=== PATIENT | male | born 1990 | race African-American/Black ===

== ENCOUNTER 2024-07-05 08:35 | Emergency (ER) | payer OTHER, SELFPAY ==
[2024-07-05 08:45] VITALS: BP 157/82; PULSE 90; RESP 16; TEMP 36.5; O2SAT 100; BMI 35.4
--- NOTE | 2024-07-05 09:10 | PC.NURSE ---
swabs obtained/sent to lab by tech.
[2024-07-05] MEDS: dexAMETHasone sod phosphate 10 MG/ML VIAL IVPUSH (09:23)
[2024-07-05] MEDS: Lidocaine HCl Viscous 2 % 15 ML SOLUTION MUCOUS MEM (09:23)
--- NOTE | 2024-07-05 09:26 | PC.NURSE ---
pt medicated per provider order.
--- NOTE | 2024-07-05 09:30 | ED.GENADULT ---
HPI - General Adult General Chief complaint: Skin/Abscess/Foreign Body Stated complaint: quest fb stuck in throat Time Seen by Provider: 07/05/24 08:57 Source: patient Mode of arrival: ambulatory Limitations: no limitations History of Present Illness ED Provider: SAMMI Collier HPI narrative: 33-year-old male presents with sore throat x3 days, reports this morning at approximately 0400- 05:00 he started experiencing foreign body sensation in his throat status post eating Tostitos. He reports he is having a hard time swallowing and it curry when he swallows. Nothing like this has ever happened to him before. He feels like he needs to vomit however has not yet vomited. Denies feeling anything sharp in his throat he just feels like something stuck there. Denies fevers, chills, headache, vision changes, dizziness, weakness, chest pain, shortness of breath, cough, vomiting, diarrhea. No sick contacts. Related Data Previous Rx's ?Medication ?Instructions ?Recorded Magic Mouthwash 5 ml PO TID #240 mL 07/05/24 Diphen/Lido/Antacid 1:1:1 240 mL suspension Allergies Allergy/AdvReac Type Severity Reaction Status Date / Time No Known Allergies Allergy Verified 07/05/24 08:47 Review of Systems Review of Systems: Yes all other systems are reviewed and are negative PMFSH Past Medical History Attestation statement: The following information was validated with the patient. Source: old records reviewed and nursing notes reviewed Social History Social History Alcohol intake: current Alcohol intake frequency: holidays/special occasions only Smoked in Last 30 Days: No Use of substances other than those prescribed or required for medical reasons: No Advance Directives: No Advance Directives Information Provided: Yes Do you have a plan to hurt others: No Plan Physical Exam ED Vital Signs: Vital Signs - 24 hr 07/05/24 08:45 07/05/24 10:22 07/05/24 11:55 Temperature 97.7 F 98.5 F Pulse Rate 90 69 71 Respiratory Rate 16 18 Blood Pressure 157/82 H 145/91 H 148/91 H Pulse Oximetry 100 97 Oxygen Delivery Method Room Air Room Air 07/05/24 12:06 Temperature 98.5 F Pulse Rate 61 Respiratory Rate 18 Blood Pressure 137/83 Pulse Oximetry 95 Oxygen Delivery Method Room Air BMI result Body Mass Index 35.4 vss Appearance: Alert.? Oriented X3.? No acute distress.? Head: Normocephalic, atraumatic, no step-offs or deformities Eyes: Pupils equal, round and reactive to light.? ENT: Pharynx normal.? No erythema, edema. Speaking in full sentences controlling secretions well Neck: Normal inspection.? Neck supple.? CVS: Normal heart rate and rhythm.? Pulses normal.? Respiratory: No respiratory distress.? Breath sounds normal.? Abdomen: Soft and nontender.? Skin: Skin warm and dry.? Normal skin color.? Normal skin turgor.? Extremities: No lower extremity edema.? No calf ttp. 5/5 strength to bilateral upper and lower extremities Neuro: Oriented X 3.? No motor deficit.? No sensory deficit. CN 2-12 intact Course Reevaluation(s) Reevaluation #1: CBC unremarkable. Chemistry no acute findings needing intervention. Flu, COVID, RSV negative. Strep negative. Wasatch negative. Patient continued to state he feels like there is something in his throat even after Decadron and lidocaine viscous. I did reach out to GI doctor whitney who recommended trying glucagon and nitroglycerin dissolved in 10 mL of water. This was ordered. Will re-evaluate patient after this is given Time: 11:35 Reevaluation #2: Patient tolerating p.o. liquids controlling secretions well. Pain improved after medicine. Discuss this case with GI will have him follow-up as an outpatient. Advised him to return with any new or worsening symptoms. Educated patient on diagnosis and treatment plan, answered all question, patient verbalizes understanding. At this time patient will be discharged home, advised to return with new or worsening symptoms. Educated on worrisome signs and symptoms and when to return. At this time I feel comfortable discharge home. Time: 13:02 Medications Administered Discontinued Medications Generic Name Dose Route Start Last Admin Trade Name Dane PRN Reason Stop Dose Admin Dexamethasone Sodium Phosphate 10 mg 07/05/24 09:17 07/05/24 09:23 Dexamethasone Sod Phosphate 10 Mg/Ml Vial IVPUSH 07/05/24 09:18 10 mg ONCE ONE Administration Glucagon 0.5 mg 07/05/24 11:37 07/05/24 11:55 Glucagon Hcl 1 Mg Vial IVPUSH 07/05/24 11:38 0.5 mg ONCE ONE Administration Lidocaine HCl 15 ml 07/05/24 09:17 07/05/24 09:23 Lidocaine Hcl Viscous 2 % 15 Ml Solution MUCOUS MEM 07/05/24 09:18 15 ml ONCE ONE Administration Nitroglycerin 0.4 mg 07/05/24 11:37 07/05/24 11:55 Nitroglycerin 0.4 Mg Tab.Subl SUBLINGUAL 07/05/24 11:38 0.4 mg ONCE ONE Administration Medical Decision Making Medical Decision Making [facility] Narrative: 33-year-old male presents with sore throat x3 days, foreign body sensation in throat since this morning after eating Tostitos PE benign History and physical exam concerning for pharyngitis versus strep throat versus mononucleosis. Low suspicion for acute threat to airway, lodged foreign body in throat. Will rule out flu versus COVID versus RSV. Plan viral testing, Monospot. Differential Diagnosis Differential Diagnoses: The differential diagnosis associated with the presentation includes ( History and physical exam concerning for pharyngitis versus strep throat versus mononucleosis. Low suspicion for acute threat to airway, lodged foreign body in throat. Will rule out flu versus COVID versus RSV.) Admission/Observation Consideration of admission/observation: Escalation of care including admission/observation considered Lab Data [facility] Lab Attestation statement: I reviewed the patient's lab results. 07/05/24 09:46 07/05/24 09:46 Labs: Lab Results 07/05/24 07/05/24 Range/Units 09: 09:46 WBC 7.7 (4.8-10.8) X10*3/uL RBC 4.48 L (4.60-5.80) X10*6/uL Hgb 12.9 L (14.0-18.0) g/dl Hct 38.2 L (42.0-52.0) % MCV 85.3 (80.0-98.0) fL MCH 28.8 (27.0-33.0) pg MCHC 33.8 (31.0-36.0) g/dl RDW 12.8 (11.0-16.0) % Plt Count 276 (160-400) X10*3/uL MPV 9.3 L (9.4-12.4) fL Immature Gran % (Auto) 0.1 (0.0-0.4) % Neut % (Auto) 82.4 H (45-73) % Lymph % (Auto) 12.9 L (20-40) % Wasatch % (Auto) 3.9 (2-11) % Eos % (Auto) 0.3 (0-4) % Baso % (Auto) 0.4 (0-2) % Lymph # (Auto) 1.0 L (1.2-4.9) X10*3/uL [place] # (Auto) 0.3 (0.1-1.2) X10*3/uL Eos # (Auto) 0.0 (0.0-0.4) X10*3/uL Baso # (Auto) 0.0 (0.0-0.2) X10*3/uL Abs Immat Gran (auto) 0.01 (0.00-0.03) X10*3/uL Absolute Neuts (auto) 6.3 (2.0-8.3) x10*3/uL Absolute Nucleated RBC 0.000 (0.0-0.012) X10*3/uL Nucleated RBC % (auto) 0.0 (0.0-0.2) /100WBC Sodium 135 (135-145) mmol/L Potassium 3.6 (3.3-5.1) mmol/L Chloride 101 (96-108) mmol/L Carbon Dioxide 23 (22-29) mmol/L Anion Gap 15 (12-20) BUN 8 L (9-16) mg/dL Creatinine 1.04 (0.5-1.4) mg/dL Estim Creat Clear Calc 116.3 Estimated GFR > 60 Random Glucose 140 H (60-115) mg/dL Calcium 9.4 (8.4-10.2) mg/dL Total Bilirubin 0.2 (0.0-1.0) mg/dL AST 25 (5-37) U/L ALT 23 (0-40) U/L Alkaline Phosphatase 130 H (39-117) U/L Total Protein 7.5 (6.5-8.0) g/dL Albumin 4.2 (3.5-5.0) g/dL Monoscreen Negative (Negative) Influenza Type A (PCR) NEGATIVE (Negative) Influenza Type B (PCR) NEGATIVE (Negative) RSV RNA Qual (PCR) NEGATIVE (Negative) SARS-CoV-2 RNA (RT-PCR) NEGATIVE (Negative) S. pyogenes GrpA OLINDA Negative (Negative) Chronic Conditions Patient?s care impacted by: Other (denies ) Critical Care Time Critical Care Time Critical Care Time: Yes Total Critical Care Time: 35 Attestation: I attest to this time spent taking care of the patient, obtaining history, physical, reviewing labs, imaging, treatment of patients condition +/- specialist/hospitalist consult Discharge Plan Discharge Clinical Impression: Sore throat, Foreign body sensation in throat Patient Disposition: Home, Self-Care Instructions: Pharyngitis (ED) Additional Instructions: Take your medications as prescribed. If you were prescribed antibiotics today, it is important that you take your medication to their entirety, do not skip any doses, do not finish them early. Follow-up with your primary care provider this week. Return to the emergency department with new or worsening symptoms. Such as fevers, chills, chest pain, shortness of breath, nausea, vomiting, dizziness, headache, vision changes, lethargy In case of emergency call 911 Follow up with GI stick to soft foods. Return if you can not tolelrate liquids Prescriptions: New Magic Mouthwash Diphen/Lido/Antacid 1:1:1 240 mL suspension 5 ml PO TID Qty: 240 0RF Rx Instructions: Lidocaine Viscous 2 % 80mL; diphenhydramine 12.5 mg/5 mL 80mL; aluminum-mag hydrox-simeth 154mh-547mg-28bi/5mL 80mL Swish and spit, do not swallow Referrals: [facility] [Provider Group] - 2 days Physician,None [Primary Care Provider] - 2 days Stand Alone Forms: Work/School Release Print Language: Chinese
[2024-07-05 09:50] LABS: MANUAL DIFF FLAG NO
[2024-07-05 09:54] LABS: Influenza A PCR NEGATIVE (Negative); Influenza B PCR NEGATIVE (Negative); Resp Syncy Virus RNA Qual PCR NEGATIVE (Negative); SARS COV2 PCR INHOUSE NEGATIVE (Negative)
[2024-07-05 09:55] LABS: IDNOW Serial# 08D9AD1C; Strep A Nucleic Acid Negative (Negative)
[2024-07-05 09:56] LABS: Basophils Percent Auto 0.4 % (0-2); Eosinophils Percent Auto 0.3 % (0-4); Hematocrit 38.2 % (42.0-52.0); Hemoglobin 12.9 g/dl (14.0-18.0); Imm Gran Abs Auto 0.01 X10*3/uL (0.00-0.03); Imm Gran Pct Auto 0.1 % (0.0-0.4); Lymphocytes Percent Auto 12.9 % (20-40); Mean Corpuscular HGB Conc 33.8 g/dl (31.0-36.0); Mean Corpuscular Hemoglobin 28.8 pg (27.0-33.0); Mean Corpuscular Volume 85.3 fL (80.0-98.0); Mean Platelet Volume 9.3 fL (9.4-12.4); Monocytes Absolute Auto 0.3 X10*3/uL (0.1-1.2); Monocytes Percent Auto 3.9 % (2-11); Neutrophils Absolute Auto 6.3 x10*3/uL (2.0-8.3); Neutrophils Percent Auto 82.4 % (45-73); Platelet Count 276 X10*3/uL (160-400); Red Blood Count 4.48 X10*6/uL (4.60-5.80); Red Cell Distribution Width 12.8 % (11.0-16.0); White Blood Count 7.7 X10*3/uL (4.8-10.8)
[2024-07-05 10:09] LABS: Alanine Aminotransferase 23 U/L (0-40); Albumin Level 4.2 g/dL (3.5-5.0); Alkaline Phosphatase 130 U/L (39-117); Anion Gap 15 (12-20); Aspartate Amino Transferase 25 U/L (5-37); Bilirubin Total 0.2 mg/dL (0.0-1.0); Blood Urea Nitrogen 8 mg/dL (9-16); Calcium 9.4 mg/dL (8.4-10.2); Carbon Dioxide 23 mmol/L (22-29); Chloride 101 mmol/L (96-108); Creatinine Clr Calc Pharmacy 116.3; Estimated Glomerular Filt Rate > 60; Glucose Random 140 mg/dL (60-115); Potassium 3.6 mmol/L (3.3-5.1); Sodium 135 mmol/L (135-145); Total Protein 7.5 g/dL (6.5-8.0)
[2024-07-05 10:11] LABS: Monotest Negative (Negative)
[2024-07-05 10:22] VITALS: BP 145/91; PULSE 69; RESP 18; TEMP 36.9; O2SAT 97
[2024-07-05 11:55] VITALS: BP 148/91; PULSE 71
[2024-07-05] MEDS: glucagon HCL 1 MG VIAL 0.5 MG IVPUSH (11:55)
[2024-07-05] MEDS: Nitroglycerin 0.4 MG TAB.SUBL SUBLINGUAL (11:55)
--- NOTE | 2024-07-05 12:00 | PC.NURSE ---
pt still reporting that he has a foreign body sensation in middle of his throat. airway remains patent. managing secretions w/o difficulty. no drooling noted. no sob/wob noted. respirations even/unlabored. prior to medication administration, pt denies use of viagra. medication administered per provider order. effectiveness pending. plan of care ongoing. call ratliff placed within reach.
[2024-07-05 12:06] VITALS: BP 137/83; PULSE 61; RESP 18; TEMP 36.9; O2SAT 95
--- NOTE | 2024-07-05 13:00 | PC.NURSE ---
pt provided w/ supplies for PO challenge. effectiveness pending.
[2024-07-05 13:11] VITALS: BP 137/83; PULSE 61; RESP 18; TEMP 36.9; O2SAT 95
== END 2024-07-05 13:11 | disposition home or self-care (01) ==
PROVIDERS: Physician Assistant; Emergency Provider Emergency Medicine
DX: J02.9 Acute pharyngitis, unspecified (principal); R09.A2 Foreign body sensation, throat; Z03.818 Encounter for observation for suspected exposure to other biological agents ruled out
CPT/HCPCS: 0241U; 36415; 80053; 85025; 86308; 87651; 96374; 96375; 99284; J1100; J1610